=== PATIENT | female | born 1975 | race Caucasian/White ===

== ENCOUNTER 2024-08-08 16:42 | Emergency (ER) | payer MEDICAID, SELFPAY ==
[2024-08-08 17:18] VITALS: BP 132/82; PULSE 63; RESP 18; TEMP 36.8; O2SAT 97
--- NOTE | 2024-08-08 17:37 | PD.EDRME ---
Rapid Medical Screening Exam RME Arrival date/time: 08/08/24 16:42 49 year old female present to ED for c/o ear pain I have greeted and performed a focused initial assessment of this patient. A comprehensive ED assessment and evaluation of the patient, analysis of all test results, and completion of the medical decision making process will be conducted by additional ED providers. Chief Complaint: Ear Vital signs: Vital Signs Temperature 98.3 F 08/08/24 17:18 Pulse Rate 63 08/08/24 17:18 Respiratory Rate 18 08/08/24 17:18 Blood Pressure 132/82 H 08/08/24 17:18 Pulse Oximetry (%) 97 08/08/24 17:18 Oxygen Delivery Method Room Air 08/08/24 17:18
--- NOTE | 2024-08-08 19:09 | PC.NURSE ---
NO answer when called in the lobby
--- NOTE | 2024-08-08 19:30 | PC.NURSE ---
NO answer when called in the lobby
--- NOTE | 2024-08-08 20:05 | PC.NURSE ---
NO ANSWER WHEN CALLED IN THE LOBBY
== END 2024-08-08 20:03 | disposition left against medical advice (07) ==
PROVIDERS: Emergency Provider Emergency Medicine
DX: H92.09 Otalgia, unspecified ear (principal); Z53.29 Procedure and treatment not carried out because of patient's decision for other reasons
CPT/HCPCS: 99281